=== PATIENT | female | born 1965 | race Caucasian/White ===

== ENCOUNTER → 2016-11-12 | Day surgery (SDC) | payer OTHER ==
[~2016-11-12] VITALS: Ht 165.1 cm; Wt 52.5 kg
[~2016-11-12] MED LIST: *morphine SULFATE 8 MG/ML PERIprocedure ONLY ONE; ACETAMINOPHEN/HYDROcodone 325 MG/7.5 MG TAB PO PRN; BETAMETHASONE SOD PHOS/ACETATE SUSP 30 MG/5 ML VIAL OTHER ONE; BUPIVACAINE/EPINEPHRINE 0.25% PF 30 ML VIAL ONE; DEXAMETHASONE SOD PHOS 4 MG/ML VIAL ONE; DO NOT ADM ANY ANTICOAGULANT DRUGS XX PRN; FAMOTIDINE 20 MG/2 ML VIAL ONE; GELATIN 12 MM/7 MM FOAM ONE; GENTAMICIN SULFATE 80 MG/2 ML VIAL IRRIGATION ONE; HYDR-3288 PO; INSULIN HUMAN REGULAR 1,000 UNITS/10 ML VIAL SQ PRN; LACTATED RINGER'S 1000 ML INJ 1,000 ML IV ONE; LACTATED RINGER'S 1000 ML IV SCH; LORA-373 PO; METOPROLOL TARTRATE 25 MG TAB PO PRN; MIDAZOLAM HCL 2 MG/2 ML VIAL ONE; MORPHINE SULFATE 4 MG/ML INJ IV PUSH PRN; NEOSTIGMINE 3 MG/3 ML SYR IV ONE; ONDANSETRON HCL 4 MG/2 ML VIAL IV PUSH ONE; ONDANSETRON HCL 4 MG/2 ML VIAL ONE; POVIDONE IODINE 7.5% SCRUB 118 ML BOTTLE TOP SCH; PROPOFOL 200 MG/20 ML AMP IV ONE; SODIUM CHLOR 0.9% 1000 ML INJ 1,000 ML IV SCH; SODIUM CHLORID 0.9% 500 ML IV SCH; ceFAZolin 2 GM PREMIX 50 ML IV SCH; ePHEDrine/NS 50 MG/5 ML SYR IV ONE; fentaNYL CITRATE 250 MCG/5 ML AMP ONE
[2016-11-12 08:10] VITALS: BP 100/63; PULSE 69; RESP 20; TEMP 97.9; O2SAT 97
--- NOTE | 2016-11-12 09:07 | MH ---
cc: YAHIR CHILDS DATE OF ADMISSION 11/12/2016 ADMISSION DIAGNOSIS Herniated nucleus pulposus lumbar spine. HISTORY This patient is a 51-year-old female with significant back, right hip and leg pain. Investigative studies shows evidence of a disk herniation eccentric to the right L4-5. Despite conservative care the patient is painful and symptomatic. She presents for surgical treatment. PAST MEDICAL HISTORY, SOCIAL HISTORY AND FAMILY HISTORY See attached notes. PHYSICAL EXAMINATION GENERAL: Averagely built female in moderate distress with her low back, right hip and leg. HEENT: Normocephalic, atraumatic. Pupils equal, round, reactive to light and accommodation. Extraocular motions intact. NECK: Supple. CHEST: Chest is clear. HEART: Regular rate and rhythm. ABDOMEN: Soft, nontender, normoactive bowel sounds. MUSCULOSKELETAL: Examination of thoracolumbar spine restricted motion, pain with range of motion. [id number] is positive on the right, negative on the left. Motor examination shows weakness right extensor hallucis longus. IMPRESSION 1. Herniated nucleus pulposus L4-5, right. 2. Right lumbar radiculopathy. PLAN Lumbar laminectomy right L4, L5, lateral recess decompression, resection herniated nucleus pulposus, use of dilation port and microscope. CONSENT The risks of surgery including infection, bleeding, loss of motion, continued pain, need for further surgery, neurologic and vascular injury. The patient understands these risks and wishes to press on with surgery as outlined above. Yahir Childs MD [facility] [place] /10:50 PM /9:00 AM
--- NOTE | 2016-11-12 09:45 | EKG ---
Date Performed: 11/12/2016 Time Performed: 08:15:14 PTAGE: 51 years EKG: SINUS BRADYCARDIA WITH MARKED RHYTHM IRREGULARITY, POSSIBLE SA BLOCK OR SINUS PAUSE ABNORMA L RHYTHM ECG NO PREVIOUS TRACING DOCTOR: Tony Carr Interpretating Date/Time 11/12/2016 09:43:46
--- NOTE | 2016-11-12 10:00 | EKG ---
Date Performed: 11/12/2016 Time Performed: 09:09:05 PTAGE: 51 years EKG: SINUS BRADYCARDIA WITH MARKED SINUS ARRHYTHMIA Versus short pauses or blocked premature atr ial contractions. BORDERLINE ECG NO SIGNIFICANT CHANGE FROM PRIOR ELECTROCARDIOGRAM. PREVIOUS TRACING : 11/12/2016 08.15 DOCTOR: Tony Carr Interpretating Date/Time 11/12/2016 10:00:17
--- NOTE | 2016-11-12 11:47 | PD.OP ---
cc: Conrad Obregon. Operative Report Date of Surgery: Nov 12, 2016 Preoperative Diagnosis: Herniated nucleus pulposus, L4 5, right. Lumbar spinal stenosis. Right lumbosacral radiculopathy Postoperative Diagnosis: Same Procedure: Right lumbar laminectomy L4 5, lateral recess decompression, resection herniated nucleus pulposis. Use of dilation port and microscope Anesthesia: Gen. Surgeon: Conrad Obregon [employer] Computer Network Analyst(s): Clau Dela Cruz PA-C Operation and Findings: EBL: 25 cc INDICATION: This patient is a 51-year-old female with severe radiating right leg pain with weakness. Investigative studies shows evidence of disc herniation to the right associated with a moderate to high-grade spinal stenosis at the L4 5 level. Despite conservative care, this patient presents now for surgical treatment. NOTE: Clau Dela Cruz PA-C was present for the entire surgical procedure as my psych assistant. In my medical opinion her skill and care was necessary for the proper management of this patient. PROCEDURE: The patient was brought to the operating room and anesthetized in the supine position. The patient was rolled to a prone position on a Cruz frame on a Omer table. All pressure points were protected in the back was scrubbed with alcohol followed by Hibiclens followed by ChloraPrep and draped sterilely. A timeout was done and antibiotics were given. AP and lateral radiographic images were used to identify the proper levels and perform skin markings. We started from the right side at the L4 5 level. A paramedian incision was made and an off-midline fascial incision was made. A dilating system was placed down to the interlaminar space and held provisionally to the side of the table. The microscope was brought into the field. A high-speed bur under the microscope was used to perform a predominantly right sided laminectomy from that side. A lateral recess decompression involving approximately one third of the medial portion of the right L4 5 facet was accomplished using straight and angled Kerrison punches. A partial medial facetectomy was accomplished. An annulotomy was necessary. There was a moderate to large size disc herniation that was contained within the annulus directly at the disc space. In addition, below the disc space there was a large extruded disc herniation that was found in 2 pieces that were severely compressing the crossing L5 nerve root. The crossing and exiting nerve roots were completely decompressed. The wound was irrigated copiously. A small piece of Gelfoam with Celestone was placed into the epidural space. Hemostasis was controlled. The deep fascia was approximated with interrupted 0 Vicryl suture subcutaneous suture with 2-0 Vicryl suture and skin with running intradermal 3-0 Vicryl followed by Dermabond. A field block with local anesthesia was utilized. A sterile dressing was applied. The sponge count and needle counts and instrument counts were all correct. The patient tolerated the procedure well as taken to the recovery room in satisfactory condition. FINDINGS: There was evidence of a large extruded disc herniation at and below the disc space. There was significant L5 nerve root compromise. At the end of the procedure there was no evidence of nerve root compromise. The lateral recess was nicely decompressed from above to below the disc space Conrad Obregon MD Nov 12, 2016 11:47
[2016-11-12 12:55] VITALS: TEMP 97.7
--- NOTE | 2016-11-12 13:55 | RADRPT ---
EXAM DATE/TIME: 11/12/2016 10:41 [facility] COMPARISON: No previous studies available for comparison. INDICATIONS : Herniated disk, laminectomy. MEDICAL HISTORY : SURGICAL HISTORY : ENCOUNTER: Initial ACUITY: 1 day PAIN SCORE: Non-responsive. LOCATION: Bilateral lumbar spine. CONCLUSION: Lateral fluoroscopic image demonstrates temporary probe overlying the posterior eleme nts at L5-S1 disc space level. Noel Adam MD on November 12, 2016 at 13:53 Board Certified Radiologist. This report was verified electronically.
[2016-11-12 14:00] VITALS: BP 107/65; PULSE 49; RESP 18; O2SAT 94
== END | disposition home or self-care (01) ==
LOC: HSDC 07:38
PROVIDERS: ATTEND Orthopaedic Surgery Orthopaedic Surgery of the Spine
DX: M51.16 Intervertebral disc disorders with radiculopathy, lumbar region (principal); M48.06 Spinal stenosis, lumbar region; R94.31 Abnormal electrocardiogram [ECG] [EKG]
CPT/HCPCS: 00630; 63030; 72020; 76000; 86850; 86900; 86901; 93005; J0690; J0702; J1100; J1580; J2250; J2270; J2405; J2710; J3010; J7120